=== PATIENT | male | born 1985 | race Caucasian/White ===

== ENCOUNTER 2021-08-04 14:48 | Emergency (ER) | payer OTHER ==
[~2021-08-04] VITALS: Ht 172.7 cm; Wt 91.8 kg
[2021-08-04 14:57] VITALS: BP 132/83
[2021-08-04] MEDS ORDERED: ACETAMINOPHEN 325 MG TAB PO ONE (19:20)
[2021-08-04] MEDS ORDERED: KETOROLAC 60MG 2ML VIAL IM ONE (19:20)
[2021-08-04] MEDS ORDERED: KETO10TAB PO (20:06)
== END 2021-08-04 20:18 | disposition home or self-care (01) ==
LOC: M ED 14:48
DX: S46.912A Strain of unspecified muscle, fascia and tendon at shoulder and upper arm level, left arm, initial encounter (principal); M62.838 Other muscle spasm; X58.XXXA Exposure to other specified factors, initial encounter; Y92.89 Other specified places as the place of occurrence of the external cause; Y93.9 Activity, unspecified; Y99.1 Military activity
CPT/HCPCS: 93005; 96372; 99283; J1885

== ENCOUNTER → 2022-11-02 | Outpatient (REF) | payer OTHER ==
[~2022-11-02] MED LIST: KETO10TAB PO
== END ==
LOC: M LABSMT 11:29
PROVIDERS: ATTEND Urology
DX: Z30.2 Encounter for sterilization (principal)

== ENCOUNTER → 2022-12-15 | Outpatient (CLI) | payer OTHER | LOC: M RAD 15:10 | PROVIDERS: ATTEND Urology | DX: N50.89 Other specified disorders of the male genital organs (principal); I86.1 Scrotal varices ==

== ENCOUNTER → 2023-07-05 | Outpatient (REF) | LOC: M PLAIMG 10:53 | PROVIDERS: ATTEND Internal Medicine | DX: M47.816 Spondylosis without myelopathy or radiculopathy, lumbar region (principal); M25.562 Pain in left knee ==